=== PATIENT | male | born 1980 | race Caucasian/White ===

== ENCOUNTER → 2019-06-21 07:18 | Outpatient (CLI) | payer OTHER, SELFPAY ==
[2019-06-21 08:03] LABS: Hemoglobin 15.2 g/dL (13.5-17.5); Mean Corpuscular HGB Conc 35.3 % (30-36); Mean Corpuscular Hemoglobin 32.9 PG (26-34); Mean Corpuscular Volume 93.3 fL (80-100); Platelet Count 186 X10^3/uL (150-400); Red Blood Cell Count 4.61 X10^6/uL (4.5-5.9); Red Cell Distribution Width 12.9 % (11.6-14.8); White Blood Cell Count 7.8 X10^3/uL (4.5-11.0)
[2019-06-21 08:33] LABS: Alanine Aminotransferase 40 IU/L (21-72); Albumin 4.8 g/dL (3.5-5.0); Albumin Globulin Ratio 2.2 (1.0-2.8); Alkaline Phosphatase 74 U/L (38-126); Aspartate Aminotransferase 33 IU/L (17-59); BUN Creatinine Ratio 21.1 (6-22); Bilirubin Total 0.7 mg/dL (0.2-1.3); Blood Urea Nitrogen 19 mg/dL (9-20); Calcium 9.9 mg/dL (8.4-10.2); Carbon Dioxide 26 mmol/L (22-32); Chloride 105 mmol/L (98-107); Cholesterol 238 mg/dL (140-199); Estimated Glomerular Filt Rate > 60.0 mL/min (>60); Globulin 2.2 g/dL (1.7-4.1); Glucose 95 mg/dL (70-100); HDL Cholesterol 37 mg/dL (40-60); HEMOLYSIS < 15 (0-50); LDL Cholesterol Calculated 166 mg/dL (<100); Potassium 4.5 mmol/L (3.4-5.1); Sodium 142 mmol/L (137-145); Triglycerides 176 mg/dL (35-150)
== END ==
PROVIDERS: PCP Nurse Practitioner Family; Visit Provider Nurse Practitioner Family
DX: Z00.00 Encounter for general adult medical examination without abnormal findings (principal); Z13.6 Encounter for screening for cardiovascular disorders
CPT/HCPCS: 36415; 80053; 80061; 85027

== ENCOUNTER 2019-07-16 12:03 | Emergency (ER) | payer OTHER, SELFPAY ==
[2019-07-16 12:17] VITALS: BP 173/105; PULSE 87; RESP 16; TEMP 36.3; O2SAT 96; BMI 28.5
--- NOTE | 2019-07-16 12:35 | DI.RAD.S_ITS ---
PROCEDURE: XR FINGER LT MIN 2V INDICATIONS: laceration TECHNIQUE: AP hand, 2 views of the fifth finger(s) acquired. COMPARISON: None. FINDINGS: Bones: No fractures or dislocations. No suspicious bony lesions. Soft tissues: No suspicious soft tissue calcifications. Soft tissue laceration is present. IMPRESSION: No visualized acute fracture or dislocation. However, if clinical concern and/or pain persist, short interval imaging followup in 7-10 days is recommended, as occult injury cannot be definitively excluded. Dictated by: Kaitlynn Quezada M.D. on 07/16/2019 at 13:06 Approved by: Kaitlynn Quezada M.D. on 07/16/2019 at 13:07
[2019-07-16] MEDS: LIDOCAINE 2% INJ MDV 10 ML SUBCUT (12:50)
[2019-07-16] MEDS: TET,DIPH,PERTUSS(ACELL),VAC/PF 0.5 ML SYRINGE IM (12:51)
[2019-07-16] MEDS: KETOROLAC 60 MG/2 ML VIAL 30 MG IM (14:57)
--- NOTE | 2019-07-16 18:12 | ED_ITS ---
HPI - Wound/Laceration <TARAS Fernandez - Last Filed: 07/16/19 18:22> General Chief Complaint: Wound/Laceration Stated Complaint: cut half of left thumb off Time Seen by Provider: 07/16/19 12:30 Source: patient and family Mode of arrival: Ambulatory Limitations: no limitations History of Present Illness HPI narrative: The patient is a 38-year-old male current everyday smoker who presents with his for chief complaint of ?I cut half my thumb off.He states he cut off part of his thumb with a razor knife. He states he has full range of motion of his left thumb, does not know his last tetanus was. He has not washed it out, states that he sliced through his thumb and half of his nails hanging off. Related Data Previous Rx's Medication Instructions Recorded valacyclovir 1 gram tablet 1,000 mg PO QDAY PRN #15 tab 06/20/19 varenicline 0.5 mg (11)-1 mg (42) See Rx Instructions PO PER PKG DIR 07/14/19 tablets in a dose pack #53 each ketorolac 10 mg PO TID PRN #14 tab 07/16/19 Allergies Allergy/AdvReac Type Severity Reaction Status Date / Time ibuprofen [IBUPROFEN] AdvReac Mild UPSET Verified 07/16/19 12:17 STOMACH Review of Systems <TARAS Fernandez - Last Filed: 07/16/19 18:22> Review of Systems Narrative: GENERAL: Denies chills, fatigue, malaise, fever, sweats. HEENT: Denies sinus pain, ear pain, sore throat, difficulty swallowing, dizziness. RESPIRATORY: Denies dyspnea, cough, wheezing, hemoptysis, sputum. CARDIOVASCULAR: Denies chest pain, palpitations, orthopnea, edema, GASTROINTESTINAL: Denies nausea, vomiting, abdominal pain, diarrhea, constipation, melena. : Denies dysuria, frequency, incontinence, hematuria, urinary retention. MUSCULOSKELETAL: See HPI SKIN: See HPI NEUROLOGIC: Denies weakness, headache, numbness, change in speech, confusion, seizures, incoordination. PSYCHIATRIC: No concerning psychosocial issues. 12 point review of systems is negative except for those stated above Patient History <TARAS Fernandez - Last Filed: 07/16/19 18:22> Medical History Chicken pox (Resolved ~1994) Contusion of rib on left side (Inactive) Herpes simplex virus (HSV) infection (12/06/17) Left rib fracture (Resolved ~2000) Surgical History Anesthesia (Resolved) History of ankle surgery (Resolved ~02/2001) [place] teeth removed (Resolved ~2007) Family History Father Age: 72 ST elevation myocardial infarction (STEMI), unspecified artery Hypertension History of heart disease Grandmother Alzheimer's dementia with behavioral disturbance, unspecified timing of dementia onset Grandfather Stroke Grandmother No problems noted. Grandfather No problems noted. Social History Smoking Status: Current every day smoker Tobacco: How many years used: 5 quit status: considering quitting (Patient declines smoking cessation handout) second hand exposure: No alcohol intake: current (a couple beers/day) substance use type: does not use Exam <TARAS Fernandez - Last Filed: 07/16/19 18:22> Narrative Exam Narrative: GENERAL: This is a well-nourished, well-developed patient, no acute distress HEAD: Atraumatic. Normocephalic. No temporal or scalp tenderness. EYES: Pupils equal round and reactive. Extraocular motions intact. No scleral icterus. No injection or drainage. ENT: Nose without bleeding, purulent drainage or septal hematoma. Throat without erythema, tonsillar hypertrophy or exudate. Uvula midline. Airway patent. NECK: Trachea midline. No JVD or lymphadenopathy. Supple, nontender, no meningeal signs. CARDIOVASCULAR: Regular rate and rhythm RESPIRATORY: No cough. No increased respiratory effort. No accessory muscle use EXTREMITIES: Full range of motion noted flexion and extension against resistance left thumb. Positive radial pulse left hand. Cap refill less than 2 seconds left thumb. Patient has laceration of left thumb: 4 cm full-thickness laceration through dermis distal phalanx left thumb, starts just distal to left nail, through left nail up and over distal phalanx 2 cm down pad of left thumb. No obvious muscle or tendon involvement. No obvious foreign body. Oozing blood. BACK: Nontender without deformity or crepitance. No flank tenderness. NEURO: AOx3. SKIN: See extremity exam Initial Vital Signs Initial Vital Signs: Vital Signs Temperature 97.4 F L 07/16/19 12:17 Pulse Rate 87 07/16/19 12:17 Respiratory Rate 16 07/16/19 12:17 Blood Pressure 173/105 H 07/16/19 12:17 Pulse Oximetry 96 07/16/19 12:17 <Shelia Escobedo MD - Last Filed: 07/17/19 07:00> Initial Vital Signs Initial Vital Signs: Vital Signs Temperature 97.4 F L 07/16/19 12:17 Pulse Rate 87 07/16/19 12:17 Respiratory Rate 16 07/16/19 12:17 Blood Pressure 173/105 H 07/16/19 12:17 Pulse Oximetry 96 07/16/19 12:17 Procedures <TARAS Fernandez - Last Filed: 07/16/19 18:22> Laceration Repair Laceration 1: Site: upper extremity Side (If applicable): left Size (cm): 4 Description: linear Depth: simple, single layer Pre-repair: wound explored, irrigated extensively (Soaked in Hibiclens, cleansed with iodine) and deep structures intact Skin layer closed with: nylon Size (cm): 4-0 Number of sutures: 8 Technique: simple, interrupted Nerve Block Nerve Block 1: Time out performed: Yes Local Anesthetic: lidocaine 2% Amount of anesthesia used (mL): 4 Side: left Nerve Blocks: digital Procedure Successful: Yes Patient Tolerated Procedure: Well Complications: none Course <TARAS Fernandez - Last Filed: 07/16/19 18:22> Orders Ordered: Discontinued Medications Diphtheria/Tetanus/Acell Pertussis (Adacel) 0.5 ml IM .ONCE ONE Stop: 07/16/19 12:43 Last Admin: 07/16/19 12:51 Dose: 0.5 ml Documented by: INDERJIT Ketorolac Tromethamine (Toradol) 30 mg IM NOW ONE Stop: 07/16/19 14:45 Last Admin: 07/16/19 14:57 Dose: 30 mg Documented by: INDERJIT Lidocaine HCl (Xylocaine 2%) 10 ml SUBCUT NOW ONE Stop: 07/16/19 12:43 Last Admin: 07/16/19 12:50 Dose: 10 ml Documented by: INDERJIT Vital Signs Vital signs: Vital Signs - 8 hr 07/16/19 12:17 Temperature 97.4 F L Pulse Rate 87 Respiratory Rate 16 Blood Pressure 173/105 H Pulse Oximetry 96 <Shelia Escobedo MD - Last Filed: 07/17/19 07:00> Orders Ordered: Discontinued Medications Diphtheria/Tetanus/Acell Pertussis (Adacel) 0.5 ml IM .ONCE ONE Stop: 07/16/19 12:43 Last Admin: 07/16/19 12:51 Dose: 0.5 ml Documented by: INDERJIT Ketorolac Tromethamine (Toradol) 30 mg IM NOW ONE Stop: 07/16/19 14:45 Last Admin: 07/16/19 14:57 Dose: 30 mg Documented by: INDERJIT Lidocaine HCl (Xylocaine 2%) 10 ml SUBCUT NOW ONE Stop: 07/16/19 12:43 Last Admin: 07/16/19 12:50 Dose: 10 ml Documented by: INDERJIT Vital Signs Vital signs: Vital Signs - 8 hr 07/16/19 12:17 Temperature 97.4 F L Pulse Rate 87 Respiratory Rate 16 Blood Pressure 173/105 H Pulse Oximetry 96 MDM - Wound/Laceration <TARAS Fernandez - Last Filed: 07/16/19 18:22> Imaging Data Finger x-ray: Radiologist's impression: [address] [address] XRay Report Signed Patient: Derek Sr [facility]#: [id number] : 1980Acct:[id number] Age/Sex: 38 / MDate of Service: 07/16/19 Loc: ED Accession Number: [id number] Procedure: XR finger LT min 2V Ordering Provider: Isabel Lopez PROCEDURE: XR FINGER LT MIN 2V INDICATIONS: laceration TECHNIQUE: AP hand, 2 views of the fifth finger(s) acquired. COMPARISON: None. FINDINGS: Bones: No fractures or dislocations. No suspicious bony lesions. Soft tissues: No suspicious soft tissue calcifications. Soft tissue laceration is present. IMPRESSION: No visualized acute fracture or dislocation. However, if clinical concern and/or pain persist, short interval imaging followup in 7-10 days is rec ommended, as occult injury cannot be definitively excluded. Dictated by: Kaitlynn Quezada M.D. on 07/16/2019 at 13:06 [facility] Narrative Medical decision making narrative: The patient is a 38-year-old male who presents with chief complaint of laceration. His tetanus was updated. X-ray shows no open fracture. The wound was copiously cleansed and sutured as an procedural note. Patient declined pain medications encouraged follow-up with primary care provider for suture removal in 7 days, discussed at length with the in the wound clean and dry, monitoring for signs and symptoms of infection. The patient is neurovascularly intact throughout his stay in the emergency department, is able to flex and extend thumb against resistance. Patient have no questions or concerns upon discharge and state understanding of return precautions as well as follow-up care. Discharge Plan Departure Patient Disposition: Home Clinical Impression: Laceration Discharge Date/Time: 07/16/19 15:27 Instructions: How to Care for a Laceration After Repair, DI for Laceration Repair, How To Perform RICE (Rest, Ice, Compress, Elevate) Activity Restrictions/Additional Instructions: Today we updated your tetanus, and sutured your hand. Please follow up with primary care provider in the next few days. Please monitor for signs and symptoms of infection such as redness Pus swelling etc. Please do not submerge her hand into dirty water as this will significantly increase your chance of infection. Please follow up for suture removal in 7 days. I have given you a prescription of Toradol. This is an NSAID. Do not combine i t with other NSAIDs such as Aleve or ibuprofen. I suggest taking it with some food, as it can irritate your stomach. [facility] As I discussed, your x-ray shows no acute fracture. Please come back to the emergency department for any acute concerns Please use aggressive rest ice compression elevation. Prescriptions: New ketorolac 10 mg tablet 10 mg PO TID PRN (Reason: pain) Qty: 14 RF: 0 No Action Chantix Starting Month Box 0.5 mg (11)- 1 mg (42) tablets,dose pack See Rx Instructions PO PER PKG DIR Qty: 53 RF: 0 valacyclovir 1 gram tablet 1,000 mg PO QDAY PRN (Reason: hsv) Qty: 15 RF: 3 Referrals: Osmel Arriaga ARNP [Primary Care Provider] -
== END 2019-07-16 15:27 | disposition home or self-care (01) ==
PROVIDERS: Emergency Provider Nurse Practitioner Family; PCP Nurse Practitioner Family
DX: S61.112A Laceration without foreign body of left thumb with damage to nail, initial encounter (principal); W26.0XXA Contact with knife, initial encounter; Z23 Encounter for immunization
CPT/HCPCS: 12002; 73140; 90471; 96372; 99283; 90715; J1885

== ENCOUNTER → 2019-08-09 16:33 | Outpatient (CLI) | payer OTHER, SELFPAY | PROVIDERS: PCP Nurse Practitioner Family; Visit Provider Nurse Practitioner Family | DX: Z01.83 Encounter for blood typing (principal) | CPT/HCPCS: 36415; 86900; 86901 ==

== ENCOUNTER → 2020-05-14 06:44 | Outpatient (CLI) | payer OTHER, SELFPAY ==
[2020-05-14 08:56] LABS: Hematocrit 43.2 % (41-53); Hemoglobin 14.9 g/dL (13.5-17.5); Mean Corpuscular HGB Conc 34.5 % (30-36); Mean Corpuscular Volume 92.9 fL (80-100); Platelet Count 214 X10^3/uL (150-400); Red Blood Cell Count 4.65 X10^6/uL (4.5-5.9); Red Cell Distribution Width 12.3 % (11.6-14.8); White Blood Cell Count 7.8 X10^3/uL (4.5-11.0)
[2020-05-14 09:15] LABS: Alanine Aminotransferase 77 IU/L (<50); Albumin 4.7 g/dL (3.5-5.0); Albumin Globulin Ratio 1.7 (1.0-2.8); Alkaline Phosphatase 91 U/L (38-126); Aspartate Aminotransferase 48 IU/L (17-59); BUN Creatinine Ratio 19.8 (6-22); Bilirubin Total 0.6 mg/dL (0.2-1.3); Blood Urea Nitrogen 18 mg/dL (9-20); Carbon Dioxide 29 mmol/L (22-32); Chloride 103 mmol/L (98-107); Cholesterol 211 mg/dL (140-199); Estimated Glomerular Filt Rate > 60.0 mL/min (>60); Globulin 2.7 g/dL (1.7-4.1); Glucose 99 mg/dL (70-100); HDL Cholesterol 34 mg/dL (40-60); HEMOLYSIS < 15 (0-50); LDL Cholesterol Calculated 129 mg/dL (<100); Sodium 142 mmol/L (137-145); Total Protein 7.4 g/dL (6.3-8.2); Triglycerides 238 mg/dL (35-150)
[2020-05-14 09:51] LABS: TSH w/ Reflex to FT4 2.26 uIU/mL (0.47-4.68)
== END ==
PROVIDERS: PCP Nurse Practitioner Family; Referring Provider Nurse Practitioner Family; Visit Provider Nurse Practitioner Family
DX: I10 Essential (primary) hypertension (principal); Z00.00 Encounter for general adult medical examination without abnormal findings; F41.8 Other specified anxiety disorders; E78.2 Mixed hyperlipidemia
CPT/HCPCS: 36415; 80053; 80061; 84443; 85027

== ENCOUNTER → 2020-06-11 12:18 | Outpatient (CLI) | payer OTHER, SELFPAY ==
[2020-06-11 15:11] LABS: Alanine Aminotransferase 64 IU/L (<50); Albumin 4.6 g/dL (3.5-5.0); Albumin Globulin Ratio 1.5 (1.0-2.8); Alkaline Phosphatase 74 U/L (38-126); Aspartate Aminotransferase 44 IU/L (17-59); Bilirubin Total 0.5 mg/dL (0.2-1.3); Bilirubin Unconjugated 0.5 mg/dL (0.0-1.1); Globulin 3.1 g/dL (1.7-4.1); HEMOLYSIS < 15 (0-50); Total Protein 7.7 g/dL (6.3-8.2)
== END ==
PROVIDERS: PCP Nurse Practitioner Family; Referring Provider Nurse Practitioner Family; Visit Provider Nurse Practitioner Family
DX: R74.8 Abnormal levels of other serum enzymes (principal)
CPT/HCPCS: 36415; 80076

== ENCOUNTER → 2020-06-14 07:32 | Outpatient (CLI) | payer OTHER, SELFPAY ==
--- NOTE | 2020-06-14 07:32 | DI.US.S_ITS ---
PROCEDURE: US ABDOMEN COMPLETE INDICATIONS: elevated liver enzymes TECHNIQUE: Real-time scanning was performed of the abdominal and retroperitoneal organs, with image documentation. COMPARISON: None. FINDINGS: Liver: Liver is enlarged in size at over 19 cm craniocaudad, and homogeneous in echotexture with diffuse increased echotexture consistent with prominent fatty infiltration. Gallbladder: The gallbladder appears normal Biliary ducts: Intrahepatic bile ducts are non-dilated. Extrahepatic bile duct caliber measures 1.5 mm. Normal is 6-7 mm or less in diameter, or 10 mm or less post-cholecystectomy. Pancreas: Visualized portions of the pancreas are sonographically normal. Spleen: Spleen is normal in size and homogeneous in echotexture. Kidneys: Kidneys are normal in size and echotexture. Right kidney measures 11.9 cm long; left kidney measures 10.8 cm long. No hydronephrosis or nephrolithiasis. No solid masses. Aorta: Visualized aorta is normal in caliber at less than 3 cm. Iliacs: Not seen due IVC: Intrahepatic inferior vena cava is patent. Miscellaneous: No free abdominal fluid. IMPRESSION: Enlarged fatty infiltrated liver, no sign of focal mass lesion or biliary distension. The gallbladder appears free of calculus or sludge. Dictated by: Derek Huizar M.D. on 06/14/2020 at 10:01 Approved by: Derek Huizar M.D. on 06/14/2020 at 10:03
== END ==
PROVIDERS: PCP Nurse Practitioner Family; Referring Provider Nurse Practitioner Family; Visit Provider Nurse Practitioner Family
DX: R74.8 Abnormal levels of other serum enzymes (principal); R16.0 Hepatomegaly, not elsewhere classified
CPT/HCPCS: 76700

== ENCOUNTER → 2020-06-20 13:50 | Outpatient (CLI) | payer OTHER, SELFPAY ==
[2020-06-20 16:12] LABS: TSH w/ Reflex to FT4 1.23 uIU/mL (0.47-4.68)
[2020-06-21 06:09] LABS: HBsAg Screen Negative (Negative); Hepatitis A Antibody IgM Negative (Negative); Hepatitis B Core Antibody IgM Negative (Negative); Hepatitis C Antibody <0.1 s/co ratio (0.0-0.9)
[2020-06-21 15:41] LABS: ANA Screen, IFA Negative (.)
[2020-06-23 14:07] LABS: Smooth Muscle Antibody 22 Units (0-19)
== END ==
PROVIDERS: PCP Nurse Practitioner Family; Referring Provider Nurse Practitioner Family; Visit Provider Nurse Practitioner Family
DX: R74.8 Abnormal levels of other serum enzymes (principal)
CPT/HCPCS: 36415; 80074; 83516; 84443; 86038

== ENCOUNTER → 2020-06-27 13:31 | Outpatient (CLI) | payer OTHER, SELFPAY ==
[2020-06-29 16:48] LABS: Smooth Muscle Antibody 20 Units (0-19)
== END ==
PROVIDERS: PCP Nurse Practitioner Family; Referring Provider Nurse Practitioner Family; Visit Provider Nurse Practitioner Family
DX: K76.0 Fatty (change of) liver, not elsewhere classified (principal); R74.8 Abnormal levels of other serum enzymes
CPT/HCPCS: 36415; 83516